=== PATIENT | male | born 1970 | race Caucasian/White ===

== ENCOUNTER 2017-11-05 12:33 | Emergency (ER) | payer MEDICAID, OTHER ==
[~2017-11-05] VITALS: Ht 170.2 cm; Wt 84.1 kg
[~2017-11-05 12:33] MED LIST: AMOX1TAB15 PO; LEVO500 PO; NOCURR; TYLENOL 3 PO
[2017-11-05 14:09] VITALS: BP 130/77
== END 2017-11-05 14:10 | disposition home or self-care (01) ==
LOC: EMS 12:34
DX: L25.9 Unspecified contact dermatitis, unspecified cause (principal)
CPT/HCPCS: 99283

== ENCOUNTER 2018-01-04 07:06 | Day surgery (SDC) | payer OTHER ==
[~2018-01-04] VITALS: Ht 167.6 cm; Wt 85.5 kg
[~2018-01-04 07:06] MED LIST changes: -AMOX1TAB15 PO; -LEVO500 PO; +MitoMYcin 0.2 MG/VIAL KIT FOR OPHTHALMIC USE OD ONE; -NOCURR; +RINGERS SOLUTION,LACTATED 500 ML IV ONE; -TYLENOL 3 PO
[2018-01-04] MEDS ORDERED: FentaNYL CITRATE-PF 100 MCG/2 ML VIAL IVP ONE (07:07)
[2018-01-04] MEDS ORDERED: MIDAZOLAM HCL 2 MG/2 ML VIAL IVP ONE (07:07)
[2018-01-04] MEDS ORDERED: MOXIFLOXACIN HCL 0.5% 3 ML OPHTHALMIC SOLUTION ONE (07:12)
[2018-01-04] MEDS ORDERED: RINGERS SOLUTION,LACTATED 500 ML IV ONE (07:13)
[2018-01-04] MEDS: MOXIFLOXACIN HCL 0.5% 3 ML OPHTHALMIC SOLUTION OD SCH ×3 (07:48→07:59)
== END 2018-01-04 11:40 | disposition home or self-care (01) ==
LOC: SURGERY 07:06
PROVIDERS: ATTEND Ophthalmology
DX: H11.051 Peripheral pterygium, progressive, right eye (principal); Z79.891 Long term (current) use of opiate analgesic; Z72.89 Other problems related to lifestyle; Z79.899 Other long term (current) drug therapy; Z82.49 Family history of ischemic heart disease and other diseases of the circulatory system; Z83.42 Family history of familial hypercholesterolemia; Z82.5 Family history of asthma and other chronic lower respiratory diseases
CPT/HCPCS: 65426; 88304; J2250; J3010; J7120

== ENCOUNTER 2019-04-14 09:12 | Inpatient (IN) | payer OTHER ==
[~2019-04-14] VITALS: Ht 172.7 cm; Wt 87.8 kg
[2019-04-14] MEDS ORDERED: ASPI81TA39 PO (09:24)
[2019-04-14] MEDS ORDERED: METO25 PO (09:24)
[2019-04-14] MEDS ORDERED: ATOR10TA84 PO (09:24)
[2019-04-14 09:38] LABS: EOSINOPHILS % (AUTO) 2.7 % (1.0-6.0); HEMOGLOBIN 16.1 g/dL (13.5-17.5); LYMPHOCYTES # (AUTO) 1.7 K/uL (1.0-4.8); MEAN CORPUSCULAR HEMOGLOBIN 29.5 pg (26.0-34.0); MEAN CORPUSCULAR HGB CONC 33.6 G/dL (31.0-37.0); MEAN CORPUSCULAR VOLUME 88 fL (80-100); MONOCYTES # (AUTO) 0.4 K/uL (0.1-1.0); MONOCYTES % (AUTO) 7.3 % (2.0-9.0); NEUTROPHILS # (AUTO) 3.5 K/uL (1.8-7.7); PLATELET COUNT (AUTO) 199 K/uL (150-450); RED BLOOD CELL COUNT(AUTO) 5.46 MIL/uL (4.50-5.90); RED CELL DISTRIBUTION WIDTH 14.1 % (11.5-14.5)
[2019-04-14 09:47] LABS: ANION GAP 6 mmol/L (8-16); CALCIUM, TOTAL 8.9 mg/dL (8.8-10.5); CARBON DIOXIDE 31 mmol/L (22-29); CHLORIDE 102 mmol/L (98-107); CREATININE 0.98 mg/dL (0.60-1.30); GLOMERULAR FILTR. RATE CALC > 60 mL/min (>60); GLUCOSE,RANDOM 106 mg/dL (70-110); POTASSIUM 3.8 mmol/L (3.5-5.1); SODIUM SERUM 139 mmol/L (136-145); UREA NITROGEN, BLOOD 12 mg/dL (7-18)
[2019-04-14 09:53] LABS: ALANINE AMINOTRANSFERASE 40 U/L (12-78); ALKALINE PHOSPHATASE 133 U/L (46-116); ASPARTATE AMINOTRANSFERASE 22 U/L (15-37); BILIRUBIN,TOTAL 0.6 mg/dL (0.1-1.0)
[2019-04-14] MEDS ORDERED: NITROGLYCERIN 2% (1 GM=INCH) PACKET TP ONE (11:30)
[2019-04-14] MEDS ORDERED: ASPIRIN 81 MG CHEWABLE TABLET PO ONE (11:30)
[2019-04-14] MEDS ORDERED: IOVERSOL 350 MG/ML 100 ML VIAL ONE (12:13)
[2019-04-14] MEDS ORDERED: SODIUM CHLORIDE 0.9% 100 ML ONE (12:13)
[2019-04-14] MEDS ORDERED: MORPHINE SULFATE 2 MG/ML SYRINGE IVP ONE (14:15)
[2019-04-14] MEDS ORDERED: ACETAMINOPHEN 325 MG TABLET PO PRN ×2 (15:00→15:30)
[2019-04-14] MEDS ORDERED: 0.9% SODIUM CHLORIDE 10 ML SYRINGE IVP PRN (15:00)
[2019-04-14] MEDS ORDERED: ONDANSETRON HCL 4 MG/2 ML VIAL IVP PRN ×2 (15:00→15:30)
[2019-04-14] MEDS ORDERED: MAGNESIUM HYDROXIDE SUSPENSION 30 ML UDCUP PO PRN (15:30)
[2019-04-14] MEDS ORDERED: HYDROCODONE/ACETAMINOPHEN 5-325 MG TABLET PO PRN (15:30)
[2019-04-14] MEDS ORDERED: BISACODYL 10 MG RECTAL RECTAL SUPPOSITORY PR PRN (15:30)
[2019-04-14] MEDS ORDERED: MORPHINE SULFATE 2 MG/ML SYRINGE IVP PRN (15:30)
[2019-04-14] MEDS ORDERED: ZOLPIDEM TARTRATE 5 MG TABLET PO PRN (15:30)
[2019-04-14] MEDS: NITROGLYCERIN 2% (1 GM=INCH) PACKET TP SCH (16:00)
[2019-04-14] MEDS ORDERED: HydrALAZINE HCL 20 MG/ML VIAL IVP PRN (16:45)
[2019-04-14] MEDS: HEPARIN SODIUM,PORCINE 5,000 UNITS/ML VIAL SQ SCH (16:46)
[2019-04-14 20:19] VITALS: BP 159/84
[2019-04-14] MEDS: METOPROLOL TARTRATE 25 MG TABLET PO SCH (21:17)
[2019-04-14] MEDS: DOCUSATE SODIUM 100 MG CAPSULE PO SCH (21:17)
[2019-04-14 23:39] VITALS: BP 140/85
[2019-04-14] MEDS ORDERED: INFLUENZA VIRUS VACCINE QVS 2019-20 (3YR+)/PF 60 MCG/0.5 ML SYRINGE IM ONE (23:45)
[2019-04-15] MEDS: HEPARIN SODIUM,PORCINE 5,000 UNITS/ML VIAL SQ SCH ×2 (00:23→08:40)
[2019-04-15] MEDS: NITROGLYCERIN 2% (1 GM=INCH) PACKET TP SCH ×2 (00:23→08:41)
[2019-04-15 04:16] VITALS: BP 129/81
[2019-04-15 06:15] LABS: BASOPHILS % (AUTO) 0.8 % (0.0-2.0); EOSINOPHILS % (AUTO) 2.6 % (1.0-6.0); HEMOGLOBIN 15.2 g/dL (13.5-17.5); LYMPHOCYTES % (AUTO) 29.9 % (22.0-44.0); MEAN CORPUSCULAR HEMOGLOBIN 29.8 pg (26.0-34.0); MEAN CORPUSCULAR HGB CONC 33.8 G/dL (31.0-37.0); MEAN CORPUSCULAR VOLUME 88 fL (80-100); MONOCYTES # (AUTO) 0.5 K/uL (0.1-1.0); MONOCYTES % (AUTO) 7.2 % (2.0-9.0); NEUTROPHILS % (AUTO) 59.5 % (40.0-70.0); PLATELET COUNT (AUTO) 180 K/uL (150-450); RED CELL DISTRIBUTION WIDTH 13.9 % (11.5-14.5)
[2019-04-15 06:31] LABS: ALANINE AMINOTRANSFERASE 36 U/L (12-78); ALBUMIN 3.5 g/dL (3.4-5.0); ALKALINE PHOSPHATASE 121 U/L (46-116); ANION GAP 7 mmol/L (8-16); ASPARTATE AMINOTRANSFERASE 19 U/L (15-37); BILIRUBIN,TOTAL 0.5 mg/dL (0.1-1.0); CALCIUM, TOTAL 8.5 mg/dL (8.8-10.5); CARBON DIOXIDE 29 mmol/L (22-29); CHLORIDE 102 mmol/L (98-107); CHOL/HDL RATIO 6.5 (4.2-7.3); CHOLESTEROL 209 mg/dL (131-200); CREATININE 0.94 mg/dL (0.60-1.30); GLOMERULAR FILTR. RATE CALC > 60 mL/min (>60); GLUCOSE,RANDOM 105 mg/dL (70-110); HDL CHOLESTEROL 32 mg/dL (40-60); LDL CHOL (CALC.) 152 mg/dL (0-130); SODIUM SERUM 138 mmol/L (136-145); TRIGLYCERIDES 125 mg/dL (15-150); UREA NITROGEN, BLOOD 20 mg/dL (7-18)
[2019-04-15 07:44] VITALS: BP 147/99
[2019-04-15] MEDS: DOCUSATE SODIUM 100 MG CAPSULE PO SCH (08:41)
[2019-04-15] MEDS: METOPROLOL TARTRATE 25 MG TABLET PO SCH (08:41)
[2019-04-15] MEDS ORDERED: ASPIRIN 81 MG CHEWABLE TABLET PO SCH (09:00)
[2019-04-15] MEDS ORDERED: PANTOPRAZOLE SODIUM 40 MG DR TABLET PO SCH (09:00)
[2019-04-15] MEDS ORDERED: ATORVASTATIN CALCIUM 10 MG TABLET PO SCH (09:00)
[2019-04-15 12:15] VITALS: BP 136/87
== END 2019-04-15 14:45 | disposition home or self-care (01) | DRG 203 ==
LOC: EMS 09:14 → 5N 17:03
PROVIDERS: ADMIT Internal Medicine; ATTEND Internal Medicine
DX: M94.0 Chondrocostal junction syndrome [Tietze] (principal); E78.00 Pure hypercholesterolemia, unspecified; E78.5 Hyperlipidemia, unspecified; I10 Essential (primary) hypertension; Z82.49 Family history of ischemic heart disease and other diseases of the circulatory system; Z79.82 Long term (current) use of aspirin; Z79.899 Other long term (current) drug therapy; Z83.3 Family history of diabetes mellitus
CPT/HCPCS: 71275; 93005; 93306; J1644; J2270; J7050